=== PATIENT | female | born 1950 | race Caucasian/White ===

== ENCOUNTER 2018-05-29 09:12 | Inpatient (IN) | payer BC, MEDICARE ==
[~2018-05-29 09:12] MED LIST: Buffered Lidocaine 0.9% SYRIN* 5 ML/SYR SYRINGE INTRADERM ONE; Sodium Citrate/Citric Acid* 15 ML UDC PO ONE
[2018-05-29] MEDS ORDERED: Dexamethasone IV* 4 MG/ML 1 ML (4 MG) ONE (09:20)
[2018-05-29] MEDS ORDERED: Heparin VIAL(*) 5000 UNITS/ML VIAL (FIVE THOUSAND) ONE (09:20)
[2018-05-29] MEDS ORDERED: Ondansetron INJ* 2 MG/ML VIAL ONE (09:20)
[2018-05-29] MEDS ORDERED: ceFAZolin 2 GM PREMIX in ORs 2 GM/50 ML BAG IVPB ONE (09:21)
[2018-05-29] MEDS ORDERED: Scopolamine 1.5 mg* PATCH ONE (09:21)
[2018-05-29] MEDS ORDERED: Sodium Citrate/Citric Acid* 15 ML UDC ONE (09:21)
[2018-05-29] MEDS ORDERED: Naloxone* 0.4 MG/ML 1 ML VIAL IV PRN (11:16)
[2018-05-29] MEDS ORDERED: Magnesium Hydroxide LIQ* 30 ML UDC PO PRN (14:43)
[2018-05-29] MEDS ORDERED: diPHENhydraMINE PO* 25 MG PO PRN (14:43)
[2018-05-29] MEDS ORDERED: HYDROcodone/ACETAMIN 5-325 MG* 1 TAB PO PRN (14:43)
[2018-05-29] MEDS ORDERED: Acetaminophen TAB* 325 MG PO PRN (14:43)
[2018-05-29] MEDS ORDERED: Ondansetron INJ* 2 MG/ML VIAL IV PRN (14:43)
[2018-05-29] MEDS ORDERED: Al Hydrox/Mg Hydrox/Simet LIQ* 30 ML UDC PO PRN (14:43)
[2018-05-29] MEDS ORDERED: fentaNYL* 50 MCG/ML 2 ML VIAL (100 MCG VIAL) ONE (14:54)
[2018-05-29] MEDS: fentaNYL* 50 MCG/ML 2 ML VIAL (100 MCG VIAL) IV PRN ×4 (14:54→15:15)
[2018-05-29] MEDS ORDERED: HYDROmorphone INJ1* 1 MG/ML SYRINGE IV PRN (15:00)
[2018-05-29] MEDS ORDERED: diPHENhydraMINE IV* 50 MG/ML 1 ml VIAL (BENADRYL) IV PRN (15:00)
[2018-05-29] MEDS ORDERED: HYDROcodone/ACETAMIN 5-325 MG* 1 TAB ONE (15:19)
[2018-05-29] MEDS: HYDROcodone/ACETAMIN 5-325 MG* 1 TAB PO PRN ×3 (15:20→23:37)
[2018-05-29] MEDS ORDERED: Fluticasone NASAL SPRAY 50MCG* 16 gm SPRAY BTL BOTH NARES PRN (16:31)
[2018-05-29] MEDS: NS 0.9% 1000 ML* 1,000 ML IV SCH (16:34)
[2018-05-29] MEDS ORDERED: Albuterol HFA INHALER* 8 gm MDI INH PRN (16:36)
[2018-05-29] MEDS: Mometasone/Formoter 200/5 MDI INH SCH (19:34)
[2018-05-29] MEDS: Docusate CAP* 100 MG PO SCH (21:30)
[2018-05-29] MEDS: Heparin VIAL(*) 5000 UNITS/ML VIAL (FIVE THOUSAND) SUBCUT SCH (21:30)
[2018-05-29] MEDS: Calcium Carbonate TAB* 1250 MG (CALCIUM 500 MG) PO SCH (21:32)
[2018-05-29] MEDS: MULTIVITAMINS PO SCH (21:32)
[2018-05-29] MEDS: MINERALS AREDS2 PO SCH (21:32)
[2018-05-30] MEDS: HYDROcodone/ACETAMIN 5-325 MG* 1 TAB PO PRN ×2 (04:07→14:03)
[2018-05-30] MEDS: NS 0.9% 1000 ML* 1,000 ML IV SCH (05:55)
[2018-05-30] MEDS: Heparin VIAL(*) 5000 UNITS/ML VIAL (FIVE THOUSAND) SUBCUT SCH ×2 (05:55→14:23)
[2018-05-30] MEDS: Mometasone/Formoter 200/5 MDI INH SCH (07:35)
[2018-05-30] MEDS ORDERED: Multivitamins/Minerals TAB PO SCH (09:00)
[2018-05-30] MEDS ORDERED: Ferrous Sulfate TAB* 325 MG PO SCH (09:00)
[2018-05-30] MEDS ORDERED: Ascorbic Acid TAB* 500 MG PO SCH (09:00)
[2018-05-30] MEDS ORDERED: Albuterol/Ipratropium NEB.SOL* Albuterol 2.5 MG/Ipratropium 0.5 MG 3 ML INH SCH (09:00)
[2018-05-30] MEDS ORDERED: Cholecalciferol TAB* 1000 UNITS PO SCH (09:00)
[2018-05-30] MEDS: MULTIVITAMINS PO SCH (09:03)
[2018-05-30] MEDS: Docusate CAP* 100 MG PO SCH (09:03)
[2018-05-30] MEDS: MINERALS AREDS2 PO SCH (09:03)
[2018-05-30] MEDS: Calcium Carbonate TAB* 1250 MG (CALCIUM 500 MG) PO SCH ×2 (09:28→14:39)
[2018-05-30 12:56] VITALS: BP 121/63
== END 2018-05-30 14:50 | disposition home or self-care (01) | DRG 364 ==
LOC: OR 09:12 → SSU 14:44
PROVIDERS: ADMIT Plastic Surgery; ATTEND Plastic Surgery
PROC: 0WBF0ZZ Excision of Abdominal Wall, Open Approach (ICD-10-PCS; principal; 2018-05-29 10:45)
DX: L57.4 Cutis laxa senilis (principal); Z98.84 Bariatric surgery status; J45.909 Unspecified asthma, uncomplicated; I83.90 Asymptomatic varicose veins of unspecified lower extremity; Z79.899 Other long term (current) drug therapy; Z87.891 Personal history of nicotine dependence; Z82.49 Family history of ischemic heart disease and other diseases of the circulatory system; Z80.8 Family history of malignant neoplasm of other organs or systems
CPT/HCPCS: 94640; A9270-GY; J0690; J1100; J1644; J2405; J3010

== ENCOUNTER 2019-01-02 11:58 | Day surgery (SDC) | payer MEDICARE ==
[~2019-01-02 11:58] MED LIST changes: +Acetaminophen TAB* 325 MG PO PRN; +Buffered Lidocaine 1% SYRIN* 1 ML/SYRINGE INTRADERM ONE; +Cyclopentolate 1% OPTH.SOL* 2 ML BTL ONE; +Ketorolac 0.5% OPHTH (NF) 0.5 % 5 ML BTL ONE; +Lidocaine 1%* 5 ML VIAL ONE; +Lidocaine 2% EPI 1:200000 MPF*10-20 ML VIAL ONE; +Neomycin/Polymy/Dex OPTH.SUSP* MAXITROL 0.1% 5 ML ONE; +Phenylephrine OPHTH SOL 2.5%* 2 ML ONE; +Povidone Iodine 5% OPTH* 30 ML BTL ONE; +Proparacaine 0.5% OPHTH.SOL* 15 ML BTL ONE; -Sodium Citrate/Citric Acid* 15 ML UDC PO ONE; +acetaZOLAMIDE TAB* 250 MG ONE
[2019-01-02] MEDS ORDERED: Midazolam* 1 MG/ML 2 ML VIAL (2 MG) ONE (13:47)
[2019-01-02 15:11] VITALS: BP 92/60
--- NOTE | 2019-01-02 15:23 | OP ---
OPERATIVE NOTE: DATE OF OPERATION: 01/02/19 DATE OF : 52 SURGEON: Mark Ornelas M.D. PREOPERATIVE DIAGNOSIS: Cataract, left eye. POSTOPERATIVE DIAGNOSIS: Cataract, left eye. OPERATIVE PROCEDURE: Extracapsular cataract extraction with intraocular lens implant, left eye. PROCEDURE: The patient was brought to the operating room after being given 1/2% Alcaine with epineph rine drops in the preoperative area. The eye was prepped and draped in the usual sterile fashion. S terile drape and eyelid speculum were placed. Again, topical 1/2% Alcaine with epinephrine was given . A paracentesis incision was made at the 3 o'clock position with the No.75 blade. Clear cornea inc ision 2.2 x 2.2-mm was created at the 6 o'clock position starting at the anterior limbus using the 2. 2-mm keratome. The anterior chamber was irrigated with 0.4 mL of 1% non-preservative intracameral li docaine and filled with DisCoVisc. A capsulorrhexis was completed using the cystotome and the Utrata forceps. Hydrodissection was performed with balanced salt solution. The lens nucleus was removed wi th the Phacoemulsification handpiece without incident. Cortex was removed with the irrigation-aspira tion handpiece. The capsular bag was re-inflated using DisCoVisc and an SN60WF 22.5 implant was inse rted with the shooter. The irrigation-aspiration handpiece was used to remove all residual DisCoVisc . The eye was refilled with balanced salt solution and the wound checked and found to be watertight. Topical Maxitrol drops were given. [id number]/[facility] #: [id number]
== END 2019-01-02 15:02 | disposition home or self-care (01) ==
LOC: OREAST 11:58
PROVIDERS: ATTEND Specialist
DX: H25.12 Age-related nuclear cataract, left eye (principal); H35.3132 Nonexudative age-related macular degeneration, bilateral, intermediate dry stage; M19.90 Unspecified osteoarthritis, unspecified site; J45.909 Unspecified asthma, uncomplicated; Z87.891 Personal history of nicotine dependence
CPT/HCPCS: A9270-GY; J2250; V2632

== ENCOUNTER 2019-01-09 09:01 | Day surgery (SDC) | payer MEDICARE ==
[~2019-01-09 09:01] MED LIST changes: -Acetaminophen TAB* 325 MG PO PRN; -Buffered Lidocaine 0.9% SYRIN* 5 ML/SYR SYRINGE INTRADERM ONE; -Buffered Lidocaine 1% SYRIN* 1 ML/SYRINGE INTRADERM ONE; -Lidocaine 1%* 5 ML VIAL ONE
[2019-01-09] MEDS ORDERED: Famotidine IV* 10 MG/ML 2 ML (20 mg) ONE (09:25)
[2019-01-09] MEDS ORDERED: Midazolam* 1 MG/ML 2 ML VIAL (2 MG) ONE (10:56)
--- NOTE | 2019-01-09 12:18 | OP ---
OPERATIVE NOTE: DATE OF OPERATION: 01/09/19 - [facility] DATE OF : 52 SURGEON: Mark Ornelas M.D. PREOPERATIVE DIAGNOSIS: Cataract, right eye. POSTOPERATIVE DIAGNOSIS: Cataract, right eye. OPERATIVE PROCEDURE: Extracapsular cataract extraction with IOL, right eye. PROCEDURE: The patient was brought to the operating room after being given 1/2 % Alcaine with epinephrine drops in the preoperative area. The eye was prepped and draped in the usual sterile fashion. Sterile drape and eyelid speculum were placed. Again, topical 1/2% Alcaine with epinephrine was given. A paracentesis incision was made at the 9 o'clock position with the No.75 blade. Clear cornea incision 2.2 x 2.2-mm was created at the 12 o'clock position starting at the anterior limbus using the 2.2-mm keratome. The anterior chamber was irrigated with 0.4 mL of 1% non-preservative intracameral lidocaine and filled with DisCoVisc. A capsulorrhexis was completed using the cystotome and the Utrata forceps. Hydrodissection was performed with balanced salt solution. The lens nucleus was removed with the Phacoemulsification handpiece without incident. Cortex was removed with the irrigation-aspiration handpiece. The capsular bag was re-inflated using DisCoVisc and an [id number] 22 implant was inserted with the shooter. The irrigation-aspiration handpiece was used to remove all residual DisCoVisc. The eye was refilled with balanced salt solution and the wound checked and found to be watertight. Topical Maxitrol drops were given. [id number]/[facility] #: [id number] [facility]ITALMakenna
[2019-01-09 12:20] VITALS: BP 101/52
== END 2019-01-09 12:10 | disposition home or self-care (01) ==
LOC: OREAST 09:01
PROVIDERS: ATTEND Specialist
DX: H25.11 Age-related nuclear cataract, right eye (principal); H35.3132 Nonexudative age-related macular degeneration, bilateral, intermediate dry stage; M19.90 Unspecified osteoarthritis, unspecified site; Z87.891 Personal history of nicotine dependence; J45.909 Unspecified asthma, uncomplicated; J30.2 Other seasonal allergic rhinitis
CPT/HCPCS: A9270-GY; J2250; V2632